=== PATIENT | female | born 1980 | race Caucasian/White ===

== ENCOUNTER 2018-12-31 22:44 | Emergency (ER) | payer SELFPAY ==
[2018-12-31] MEDS ORDERED: FLU Vacc QS2019-20(6MOS+)/PF 60 MCG/0.5 ML SYRINGE IM ONE (23:15)
[2018-12-31] MEDS ORDERED: Amoxicillin/Clavulanate K 500-125 MG Tab PO ONE (23:22)
[2018-12-31] MEDS ORDERED: Acetaminophen/oxyCODONE 325-5 MG Tab PO ONE (23:23)
[2018-12-31] MEDS ORDERED: Dexamethasone 4 MG Tab PO ONE (23:23)
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
--- NOTE | 2019-01-01 07:05 | CR ---
Right wrist: Four views of the right wrist were obtained. Comparison: No previous wrist exam. Joint spaces are preserved. No fracture, dislocation or other bony abnormality is identified. Impression: 1. No bony abnormality is identified on right wrist exam. Diagnostic code #1
== END 2018-12-31 23:47 | disposition home or self-care (01) ==
LOC: JD.ED 22:44
DX: K04.7 Periapical abscess without sinus (principal); K02.9 Dental caries, unspecified; M65.4 Radial styloid tenosynovitis [de Quervain]; J45.909 Unspecified asthma, uncomplicated; Z79.899 Other long term (current) drug therapy; Z23 Encounter for immunization
CPT/HCPCS: 73110; 90471; 90686; 99283; A9270; J8540; G0008

== ENCOUNTER 2019-02-01 12:15 | Emergency (ER) | payer SELFPAY ==
[2019-02-01] MEDS ORDERED: Sodium Chloride 0.9% 1,000 ML IV ONE (13:08)
[2019-02-01] MEDS ORDERED: Sodium Chloride 0.9% 10 ML Syringe FLUSH PRN (13:08)
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
== END 2019-02-01 16:19 | disposition home or self-care (01) ==
LOC: JD.ED 12:15
DX: D64.9 Anemia, unspecified (principal); N92.0 Excessive and frequent menstruation with regular cycle; Z87.891 Personal history of nicotine dependence
CPT/HCPCS: 36415; 80053; 81001; 84703; 85025; 96360; 99284; J7040; 99283

== ENCOUNTER 2019-12-26 07:59 | Day surgery (SDC) | payer BC ==
[~2019-12-26 07:59] MED LIST: Bupivacaine/fentaNYL/NS 100 ML Bag EPIDUR PRN; Lactated Ringers 1,000 ML IV SCH; Lidocaine 1%/Sod Bicarbonate in NS 8.4% 1 ML Syringe IDERM PRN; Sodium Chloride 0.9% 10 ML Syringe FLUSH PRN; diphenhydrAMINE 50 MG/ML SDV IVPUSH PRN; ePHEDrine 50 MG/ML SDV IVPUSH PRN; fentaNYL 100 MCG/2 ML SDV EPIDUR PRN
[2019-12-26] MEDS ORDERED: Lactated Ringers 1,000 ML ONE (08:16)
[2019-12-26] MEDS ORDERED: Dexamethasone 4 MG/ML 5 ML MDV ONE (08:16)
[2019-12-26] MEDS ORDERED: fentaNYL 250 MCG/5 ML SDV ONE (08:16)
[2019-12-26] MEDS ORDERED: Propofol 200 MG/20 ML SDV ONE (08:16)
[2019-12-26] MEDS ORDERED: Rocuronium 50 MG/5 ML Vial ONE (08:16)
[2019-12-26] MEDS ORDERED: Ondansetron 4 MG/2 ML SDV ONE (08:16)
[2019-12-26] MEDS ORDERED: Midazolam 1 MG/ML 2 ML SDV ONE (08:16)
[2019-12-26] MEDS ORDERED: Lidocaine 1% 4 ML ONE (08:34)
[2019-12-26] MEDS ORDERED: Famotidine 20 MG/2 ML SDV IVPUSH ONE (09:04)
[2019-12-26] MEDS ORDERED: Midazolam 1 MG/ML 2 ML SDV IV ONE (09:04)
[2019-12-26] MEDS ORDERED: Sodium Chloride 0.9% 10 ML Syringe FLUSH PRN (09:04)
[2019-12-26] MEDS ORDERED: Lidocaine 1%/Sod Bicarbonate in NS 8.4% 1 ML Syringe IDERM PRN (09:04)
[2019-12-26] MEDS ORDERED: Bupivacaine 0.5% 30 ML SDV ONE (09:07)
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
[2019-12-26] MEDS ORDERED: Lactated Ringers 1,000 ML IV SCH (09:15)
[2019-12-26] MEDS ORDERED: Ketorolac 30 MG/ML SDV ONE (10:42)
[2019-12-26] MEDS ORDERED: Ondansetron 4 MG/2 ML SDV IVPUSH PRN (10:51)
[2019-12-26] MEDS ORDERED: diphenhydrAMINE 50 MG/ML SDV IVPUSH PRN (10:51)
--- NOTE | 2019-12-26 10:51 | PCM.POSTAN ---
POST ANESTHESIA ASSESSMENT - MENTAL STATUS Mental Status: Alert, Oriented - VITAL SIGNS Vital Signs: Last Vital Signs Temp 36.2 C 12/26/19 08:10 Pulse 70 12/26/19 08:10 Resp 16 12/26/19 08:10 BP 133/76 12/26/19 08:10 Pulse Ox 98 12/26/19 08:10 - RESPIRATORY Respiratory Status: Respiratory Rate WNL, Airway Patent, O2 Saturation Stable - CARDIOVASCULAR CV Status: Pulse Rate WNL, Blood Pressure Stable - GASTROINTESTINAL GI Status: No Symptoms - PAIN Pain Score: 0 - POST OP HYDRATION Hydration Status: Adequate & Stable
--- NOTE | 2019-12-26 11:07 | PCM.OPNOTE ---
- General Post-Op/Procedure Note Date of Surgery/Procedure: 12/26/19 Operative Procedure(s): Diagnostic laparoscopy, hysteroscopy with dilation and curettage Findings: Posterior cul-de-sac near reflection site of lower uterus with suspected endometriosis lesion. Grossly normal-appearing uterus, bilateral fallopian tubes and ovaries. Normal-appearing appendix. Normal-appearing intestines and visualized portions of the liver. Normal-appearing ostia bilaterally and thickened endometrium noted on hysteroscopy. Pre Op Diagnosis: Abnormal uterine bleeding with suspected endometrial polyp on ultrasound and pelvic pain Post-Op Diagnosis: Same Anesthesia Technique: General ET Tube Primary Surgeon: Kenn Eddy Anesthesia Provider: Yaima De La Torre Edge Inker Uppers: Kirill Smith Reason Edge Inker Uppers Was Necessary: Laparoscopic assistance for patient safety and reduction of morbidity and mortality Role of Edge Inker Uppers: Use of laparoscopic instruments during the laparoscopic portion of the case. Pathology: Endometrial curettings Fluid Replacement, Intraop: 1,600 Output, Urine Amount: 0 (Voided prior to procedure) EBL in mLs: 30 Complications: None Condition: Good Free Text/Narrative:: Hysteroscopy fluids Fluid in: 800 mL Fluid out: 700 mL Length of procedure: 29 minutes Procedure in detail: The patient was seen in the preoperative holding area and risks, benefits, indications, and alternatives of the procedure were reviewed with the patient and she desired to proceed with a diagnostic laparoscopy, possible lysis of adhesions, possible biopsies, hysteroscopy, dilation and curettage and possible polypectomy. Consents were reviewed. The patient was taken back to the OR and given general anesthesia with an endotracheal tube which was placed without difficulty. She was placed in dorsal lithotomy position using Yellofin stirrups. She was prepped and draped in normal sterile fashion. Attention was then turned to her umbilicus and the inferior portion was injected with 0.5% Marcaine and a 5 mm stab incision was made with a scalpel and a Veress needle was then inserted through the incision. The gas was turned on, with an opening pressure of 4mmHg. Pneumoperitoneum was continued until 15 mmHg pressure. A 5 mm trocar was then inserted under direct visualization through the incision without difficulty. A global view of the abdomen was taken and noted to be overall free of adhesions. Attention was then turned to the suprapubic area and the skin was injected with local anesthetic. A skin incision was made using a scalpel. A 5 mm trocar was then inserted under direct visualization with laparoscope. A global view of the abdomen was then taken and noted to be overall normal in appearance. The intestines, visualized portions of the liver and gallbladder and upper abdomen were overall normal appearance. The uterus was then inspected and felt to be overall normal in appearance. The fallopian tubes and ovaries were normal bilaterally. Inspection of the posterior cul-de-sac showed a small area of suspected endometriosis that was measuring 1 to 2 mm in size. A biopsy was not able to be taken of this area. The anterior cul-de-sac was noted to be free of any adhesions or endometriosis lesions. The abdomen was then further explored and the appendix was visualized and was normal in appearance. The remainder of the abdomen was felt to be overall normal and the abdominal portion of the case was completed at this time. The gas was then evacuated from the peritoneum and troc ars removed. These were closed using 4-0 Monocryl suture and Dermabond. Attention was then turned to the pelvis for the hysteroscopic portion of the procedure. A weighted speculum was placed in the vagina and the cervix was visualized. The anterior lip of the cervix was grasped with an Allis clamp. The cervix was serially dilated to a 15 Yi Valadez dilator. A 5 mm hysteroscope was inserted into the uterine cavity and advanced to the uterine fundus. The ostia were noted to be present bilaterally. The uterine cavity was difficult to visualize secondary to the amount of blood clot that was present. The hysteroscope was removed and a sharp curette was used to circumferentially curette the entirety of the uterine cavity where good cri was present in all directions. The curettings were sent for pathology. The hysteroscope was then reinserted into the uterine cavity and there was noted to be no polyp or thickened lining of the uterus present. The procedure was complete at this time and the Allis clamp was removed from the cervix and good hemostasis was noted. All instruments were removed from the vagina. All needle and sponge counts were correct x 2. The patient was awoken from general anesthesia and taken to the PACU for recovery in stable condition. She will be discharged to home once she is able to meet all postoperative milestones including tolerating small amount of oral intake and liquids, ambulate without difficulty, her pain controlled with oral medications and able to void without difficulty. She will follow-up in the clinic in 1week or earlier as needed. Sponge, lap, needle, and instrument counts were correct x 2. Kenn Eddy MD 11:05 AM 12/26/2019 Review of images from the case IMG 001: Left fallopian tube and ovary with grossly normal appearance. Small portion of the uterine fundus was normal in appearance. IMG 002: Right fallopian tube and ovary with grossly normal appearance. Small portion of the uterine fundus was normal in appearance. IMG 003: Anterior cul-de-sac and uterine fundus with normal appearance. IMG 004: Appendix with grossly normal appearance. IMG 005: Upper abdomen with right lobe of the liver grossly normal in appearance . IMG 006: Upper abdomen on the left side with left lobe of the liver grossly normal in appearance IMG 007: Posterior cul-de-sac near the peritoneal reflection point with suspected endometriosis lesion. IMG 008: Left fallopian tube ostia location difficult to visualize ostia IMG 009: Right tubal ostia location IMG 010: Uterine fundus after curettage IMG 011: Uterine fundus and left portion of the uterus grossly normal in appearance after curettage IMG 012: Uterine fundus in the right portion of the uterine cavity grossly normal in appearance after curettage IMG 013: Global view of the uterine cavity after curettage
[2019-12-26] MEDS: fentaNYL 100 MCG/2 ML SDV IVPUSH PRN ×2 (11:08→11:26)
[2019-12-26] MEDS ORDERED: Acetaminophen/HYDROcodone 325-5 MG Tab PO PRN (12:10)
--- NOTE | 2019-12-29 07:31 | PCM48HPAN ---
Post Anesthesia Note - EVALUATION WITHIN 48HRS OF ANESTHETIC Vital Signs in Normal Range: Yes Patient Participated in Evaluation: Yes Respiratory Function Stable: Yes Airway Patent: Yes Cardiovascular Function Stable: Yes Hydration Status Stable: Yes Pain Control Satisfactory: Yes Nausea and Vomiting Control Satisfactory: Yes Mental Status Recovered: Yes Vital Signs: Last Vital Signs Temp 36.7 C 12/26/19 12:45 Pulse 56 L 12/26/19 12:45 Resp 16 12/26/19 12:45 BP 128/88 12/26/19 12:45 Pulse Ox 96 12/26/19 12:45
== END 2019-12-26 13:05 | disposition home or self-care (01) ==
LOC: JD.SDS 07:59
PROVIDERS: ATTEND Obstetrics & Gynecology
DX: N84.0 Polyp of corpus uteri (principal); J45.909 Unspecified asthma, uncomplicated; F41.9 Anxiety disorder, unspecified; F32.9 Major depressive disorder, single episode, unspecified; Z87.891 Personal history of nicotine dependence
CPT/HCPCS: 49320; 58558; 81001; 81025; A9270; J1100; J1885; J2001; J2250; J2405; J2704; J2710; J3010; J3490; J7120; 00840

== ENCOUNTER 2020-05-22 01:18 | Emergency (ER) | payer BC ==
[2020-05-22] MEDS ORDERED: Ondansetron 4 MG/2 ML SDV IVPUSH ONE (02:09)
[2020-05-22] MEDS ORDERED: HYDROmorphone 1 MG/ML Syringe IVPUSH STA (02:09)
[2020-05-22] MEDS ORDERED: FLU VACC QS2020-21(6MOS UP)/PF 60 MCG/0.5 ML SYRINGE IM ONE (02:15)
[2020-05-22] MEDS ORDERED: Sodium Chloride 0.9% 1,000 ML IV SCH (02:15)
--- NOTE | 2020-05-22 02:18 | EDM.PDOC ---
ED HPI GENERAL MEDICAL PROBLEM - General Chief Complaint: Abdominal Pain Stated Complaint: RIGHT SIDE PAIN/VOMITING Time Seen by Provider: 05/22/20 01:32 Source of Information: Reports: Patient, Significant Other (Boyfriend) History Limitations: Reports: No Limitations - History of Present Illness INITIAL COMMENTS - FREE TEXT/NARRATIVE: Ms. Perla is a very pleasant 40-year-old woman who now presents to the ED stating that she has had right upper quadrant abdominal pain waxing and waning for the past 6 days, followed by nausea since evening, 05/20/2020, and 1 episode of emesis last night, 05/21/2020. She describes her abdominal pain as a dull ache, but it becomes sharp and stabbing on occasion, especially with certain movements, such as bending over. She has not identified any other modifiers, such as food, although she states that she has not been eating very much. No associated fever, constipation, diarrhea, or urinary symptoms such as dysuria, urinary frequency, or gross hematuria. The patient states that she has a history of kidney stones, but that this does not really feel like a kidney stone. She also has a history of laparoscopy-con firmed endometriosis, which has previously been confined to the right lower quadrant. The patient states that she took 1 dose of her fianc's Prilosec on Sunday, Sunday, and , without improvement in her symptoms. She has also been taking [id number] ibuprofen and Excedrin, which she states "takes the edge off". The patient last ate around 19:30. Here in the ED, the patient's initial BP is found to be elevated at 180/104, otherwise, she is hemodynamically stable, afebrile, saturating 100% on room air. She appears to be quite anxious, but is in no acute distress. Prior to 6 days ago, the patient denies having a recent fever, chills, sore throat, ear pain, nasal or sinus congestion, cough, dyspnea, chest pain, palpitations, nausea, vomiting, constipation, diarrhea, abdominal pain, urinary symptoms, recent weight gain or weight loss, recent bloody bowel movements or black bowel movements, recent joint aches, headaches, or rashes. The patient does not have a PCP. Her Senior Software Tester is Dr. Kenn Eddy. She has not received an influenza vaccine this season, but agreed to get one here in the ED. Right Abdomen Pain Score (Numeric/FACES): 7 - Related Data Allergies Allergy/AdvReac Type Severity Reaction Status Date / Time No Known Allergies Allergy Verified 02/18/19 22:44 Home Meds: Home Meds Ferrous Sulfate [Iron] 325 mg PO DAILY 12/31/18 [History] Docusate Sodium [Colace] 100 mg PO BID #60 capsule 12/26/19 [Rx] Hydrocodone/Acetaminophen [Hydrocodone-Acetamin 5-325 mg] 1 - 2 each PO Q6HR PRN #12 tablet 12/26/19 [Rx] Ibuprofen 600 mg PO Q6H PRN #0 12/26/19 [Rx] Ondansetron [Zofran ODT] 1 tab PO Q8H PRN #10 tab.dis 05/22/20 [Rx] Past Medical History Cardiovascular 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: Other (See Below) (Patient has had to wear a Holter monitor in the past for "passing out for no known reason," but states she never had to see a minute clerk and that nobody ever did anything else to her) Respiratory 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: Asthma (suspected as a child) Gastrointestinal 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: Gastritis (per EGD), PUD (bleeding, per EGD) Genitourinary 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: Renal Calculus 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: Endometriosis (laparoscopy-confirmed), Spontaneous (x 2), Other (See Below) () Musculoskeletal 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: Back Pain, Chronic (due to DDD), Neck Pain, Chronic (due to DDD) Psychiatric 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: Anxiety (untreated), Depression (untreated) Endocrine/Metabolic 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: Obesity/BMI 30+ Hematologic 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: Blood Transfusion(s), Iron Deficiency - Past Surgical History HEENT Surgical 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: Oral Surgery (dental extractions) GI Surgical 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: Colonoscopy (x 1), EGD (x 1) Female Surgical 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: D&C (x 1), Other (See Below) (Exploratory laparoscopy with endometrial biopsy x 1) Social & Family History - Tobacco Use Tobacco Use Status *Q: Former Tobacco User Years of Tobacco use: 28 Packs/Tins Daily: 1 Month/Year Tobacco Last Used: Quit 2017 Tobacco Use Comment: Started at 9 yrs old - Caffeine Use Caffeine Use: Reports: None - Alcohol Use Alcohol Use History: No - Recreational Drug Use Recreational Drug Use: Yes Drug Use in Last 12 Months: Yes Recreational Drug Type: Reports: Marijuana/Hashish (smokes daily) - Living Situation & Occupation Living situation: Reports: , with Significant Other (Fianc), with Family (2 kids) Occupation: Employed ([employer]) ED ROS GENERAL - Review of Systems Review Of Systems: Comprehensive ROS is negative, except as noted in HPI. ED EXAM, GI/ABD - Physical Exam Exam: See Below Exam Limited By: No Limitations General Appearance: Alert, WD/WN, No Apparent Distress Eyes: Bilateral: Normal Appearance, EOMI Ears: Normal External Exam, Hearing Grossly Normal Nose: Normal Inspection Throat/Mouth: Normal Inspection, Normal Lips, Normal Voice, No Airway Compromise Head: Atraumatic, Normocephalic Neck: Normal Inspection, Full Range of Motion Respiratory/Chest: No Respiratory Distress, Lungs Clear, Normal Breath Sounds, No Accessory Muscle Use Cardiovascular: Normal Peripheral Pulses, Regular Rate, Rhythm, No Edema, No Gallop, No JVD, No Murmur, No Rub GI/Abdominal Exam: Normal Bowel Sounds, Soft, No Organomegaly, No Distention, No Abnormal Bruit, No Mass, Tender (Palpation of the left abdomen induces pain on the right. She has a considerable tenderness to the right upper quadrant, including a true Lieberman sign.) Back Exam: Normal Inspection, Full Range of Motion, CVA Tenderness (R). No: CVA Tenderness (L) Extremities: Normal Inspection, Normal Range of Motion, No Pedal Edema, Normal Capillary Refill Neurological: Alert, Oriented, Normal Cognition, No Motor/Sensory Deficits Psychiatric: Anxious Skin Exam: Warm, Dry, Intact, Normal Color, No Rash Course - Vital Signs Last Recorded V/S: Last Vital Signs Temp 36.4 C 05/22/20 01:32 Pulse 69 05/22/20 01:32 Resp 20 05/22/20 01:32 BP 180/104 H 05/22/20 01:32 Pulse Ox 100 05/22/20 01:32 - Orders/Labs/Meds Orders: Active Orders 24 hr Category Date Time Status Influenza Vaccine Charge [RC] .DISCHARGE Care 05/22/20 02:00 Active Abdomen Ltd [US] Stat Exams 05/22/20 02:08 Taken Abdomen Pelvis w Cont [CT] Stat Exams 05/22/20 02:09 Taken Sodium Chloride 0.9% [Normal Saline] 1,000 ml Med 05/22/20 02:15 Active IV ASDIRECTED Medication Orders Sodium Chloride (Normal Saline) 1,000 mls @ 150 mls/hr IV ASDIRECTED CHELSI Last Admin: 05/22/20 03:10 Dose: 150 mls/hr Documented by: [id number] Labs: Laboratory Tests 05/22/20 05/22/20 05/22/20 Range/Units 02:09 02:41 02:56 WBC (3.98-10.04) K/mm3 RBC (3.98-5.22) M/mm3 Hgb (11.2-15.7) gm/dl Hct (34.1-44.9) % MCV (79.4-94.8) fl MCH (25.6-32.2) pg MCHC (32.2-35.5) g/dl RDW Std Deviation (36.4-46.3) fL Plt Count (182-369) K/mm3 MPV (9.4-12.3) fl Neutrophils % (Manual) (40-60) % Band Neutrophils % (0-10) % Lymphocytes % (Manual) (20-40) % Atypical Lymphs % % Monocytes % (Manual) (2-10) % Eosinophils % (Manual) (0.7-5.8) % Basophils % (Manual) (0.1-1.2) Platelet Estimate RBC Morph Comment Sodium (136-145) mEq/L Potassium (3.5-5.1) mEq/L Chloride (98-107) mEq/L Carbon Dioxide (21-32) mEq/L Anion Gap (5-15) BUN (7-18) mg/dL Creatinine (0.55-1.02) mg/dL Est Cr Clr Drug Dosing mL/min Estimated GFR (MDRD) (>60) mL/min BUN/Creatinine Ratio (14-18) Glucose (74-106) mg/dL Calcium (8.5-10.1) mg/dL Magnesium (1.8-2.4) mg/dl Total Bilirubin (0.2-1.0) mg/dL AST (15-37) U/L ALT (14-59) U/L Alkaline Phosphatase (46-116) U/L Total Protein (6.4-8.2) g/dl Albumin (3.4-5.0) g/dl Globulin gm/dL Albumin/Globulin Ratio (1-2) Lipase (73-393) U/L Urine Color Light yellow (Yellow) Urine Appearance Clear (Clear) Urine pH 6.5 (5.0-8.0) Ur Specific Elbert 1.020 (1.005-1.030) Urine Protein Negative (Negative) Urine Glucose (UA) Negative (Negative) Urine Ketones Negative (Negative) Urine Occult Blood Negative (Negative) Urine Nitrite Negative (Negative) Urine Bilirubin Negative (Negative) Urine Urobilinogen 0.2 (0.2-1.0) Ur Leukocyte Esterase Negative (Negative) Urine RBC Not seen (0-5) /hpf Urine WBC Not seen (0-5) /hpf Ur Squamous Epith Cells Not seen (0-5) /hpf Urine Bacteria Rare (FEW) /hpf Urine Mucus Rare (FEW) /hpf Urine HCG, Qual Negative (NEGATIVE) SARS-CoV-2 RNA (DAWN) Negative (NEGATIVE) 05/22/20 05/22/20 Range/Units 03:15 03:15 WBC 6.66 (3.98-10.04) K/mm3 RBC 4.05 (3.98-5.22) M/mm3 Hgb 12.5 (11.2-15.7) gm/dl Hct 37.5 (34.1-44.9) % MCV 92.6 D (79.4-94.8) fl MCH 30.9 (25.6-32.2) pg MCHC 33.3 (32.2-35.5) g/dl RDW Std Deviation 41.1 (36.4-46.3) fL Plt Count 313 (182-369) K/mm3 MPV 9.7 (9.4-12.3) fl Neutrophils % (Manual) 51 (40-60) % Band Neutrophils % 0 (0-10) % Lymphocytes % (Manual) 38 (20-40) % Atypical Lymphs % 0 % Monocytes % (Manual) 7 (2-10) % Eosinophils % (Manual) 4 (0.7-5.8) % Basophils % (Manual) 0 L (0.1-1.2) Platelet Estimate Adequate RBC Morph Comment Normal Sodium 142 (136-145) mEq/L Potassium 3.5 (3.5-5.1) mEq/L Chloride 105 (98-107) mEq/L Carbon Dioxide 24 (21-32) mEq/L Anion Gap 16.5 H (5-15) BUN 9 (7-18) mg/dL Creatinine 0.8 (0.55-1.02) mg/dL Est Cr Clr Drug Dosing 65.80 mL/min Estimated GFR (MDRD) > 60 (>60) mL/min BUN/Creatinine Ratio 11.3 L (14-18) Glucose 91 (74-106) mg/dL Calcium 9.2 (8.5-10.1) mg/dL Magnesium 2.0 (1.8-2.4) mg/dl Total Bilirubin 0.2 (0.2-1.0) mg/dL AST 19 (15-37) U/L ALT 24 (14-59) U/L Alkaline Phosphatase 64 (46-116) U/L Total Protein 7.5 (6.4-8.2) g/dl Albumin 3.7 (3.4-5.0) g/dl Globulin 3.8 gm/dL Albumin/Globulin Ratio 1.0 (1-2) Lipase 114 (73-393) U/L Urine Color (Yellow) Urine Appearance (Clear) Urine pH (5.0-8.0) Ur Specific Elbert (1.005-1.030) Urine Protein (Negative) Urine Glucose (UA) (Negative) Urine Ketones (Negative) Urine Occult Blood (Negative) Urine Nitrite (Negative) Urine Bilirubin (Negative) Urine Urobilinogen (0.2-1.0) Ur Leukocyte Esterase (Negative) Urine RBC (0-5) /hpf Urine WBC (0-5) /hpf Ur Squamous Epith Cells (0-5) /hpf Urine Bacteria (FEW) /hpf Urine Mucus (FEW) /hpf Urine HCG, Qual (NEGATIVE) SARS-CoV-2 RNA (DAWN) (NEGATIVE) Meds: Medications Generic Name Dose Route Start Last Admin Trade Name Freq PRN Reason Stop Dose Admin Sodium Chloride 1,000 mls @ 150 mls/hr 05/22/20 02:15 05/22/20 03:10 Normal Saline IV 150 mls/hr ASDIRECTED CHELSI Administration Discontinued Medications Generic Name Dose Route Start Last Admin Trade Name Freq PRN Reason Stop Dose Admin Hydromorphone HCl 0.5 mg 05/22/20 02:09 05/22/20 03:09 Dilaudid IVPUSH 05/22/20 02:10 0.5 mg ONETIME STA Administration Influenza Virus Vaccine 1 each 05/22/20 02:00 Pharmacy To Dose - Influenza Vaccine IM 05/22/20 02:01 ONETIME ONE Influenza Virus Vaccine 60 mcg 05/22/20 02:15 05/22/20 02:58 Fluzone Quad Syringe IM 05/22/20 02:16 60 mcg .ONCE ONE Administration Ondansetron HCl 4 mg 05/22/20 02:09 05/22/20 03:00 Zofran IVPUSH 05/22/20 02:10 4 mg ONETIME ONE Administration - Re-Assessments/Exams Free Text/Narrative Re-Assessment/Exam: 05/22/20 02:11 As above, the patient has had 6 days of right upper quadrant pain radiating through to her right back, made worse with movements, but not really with food, then developed nausea night and vomited last night. On examination, she has considerable tenderness to her right upper quadrant, along with a true Lieberman's sign, but she also has some right CVA tenderness. I believe that her history and physical examination are most consistent with acute cholecystitis, although a ureterolith or other cause, such as endometriosis, are possible, as well. I have ordered an ultrasound of the right upper quadrant, after which she can be doing drinking oral contrast for a CT of the abdomen with oral and IV contrast. I have additionally ordered numerous blood tests, a urinalysis, a urine test, and, if she is to be admitted, a swab for the SARS-CoV-2 virus. In the meantime, the patient will be given IV Dilaudid, IV Zofran, and IV fluid. 05/22/20 03:46 Ultrasound of the right upper quadrant is read by [facility] as "No acute findings." 05/22/20 04:24 The patient's CBC, CMP, magnesium level, lipase level, urinalysis, urine test, and swab for the SARS-CoV-2 virus are all completely normal/n egative. 05/22/20 05:45 CT of the abdomen and pelvis with oral and IV contrast is read by [facility] as "No acute findings in the abdomen or pelvis." 05/22/20 05:48 Test results discussed with the patient. As above, the patient's entire work-up was completely unremarkable. That could be because the patient has cholecystitis, which oftentimes has an unremarkable work-up, or it could also be that the patient is simply feeling anxious, as she had initially feared. I will refer the patient to Dr. Raymundo for further evaluation, that will likely include a HIDA scan. The patient will be given an influenza vaccine prior to discharge. Departure - Departure Time of Disposition: 05:49 Disposition: Home, Self-Care 01 Condition: Good Clinical Impression: Right upper quadrant abdominal pain of unknown etiology, Nausea & vomiting - Discharge Information *PRESCRIPTION DRUG MONITORING PROGRAM REVIEWED*: Not Applicable *COPY OF PRESCRIPTION DRUG MONITORING REPORT IN PATIENT LAZARO: Not Applicable Referrals: Jazmín Raymundo MD [Physician] - Kenn Eddy MD [Physician] - Forms: ED Department Discharge Additional Instructions: You were seen in the emergency room for 6 days of upper right abdominal pain radiating to the your right back, along with nausea and vomiting. Work-up in the ER included numerous blood tests, a urinalysis, a urine test, a swab for the SARS-CoV-2 virus, an ultrasound of your gallbladder, and a CT of your abdomen and pelvis. Your entire work-up was unremarkable, and does not explain the cause of your symptoms. A prescription for the anti-nausea medicine Zofran has been sent to the [facility] located in the [facility] grocery store. You may dissolve 1 tablet of Zofran on your tongue up to every 8 hours, as needed for nausea/vomiting. We recommend that you stay adequately hydrated and eat a bland, low-fat diet. We recommend that you follow-up with the Surgeon Dr. Jazmín Raymundo. Call his office Sunday morning to make an appointment. If any other problems, please do not hesitate to return to the ER. You were given an influenza vaccine during your ER visit. Sepsis Event Note (ED) - Evaluation Sepsis Screening Result: No Definite Risk - Focused Exam Vital Signs: Vital Signs Temp Pulse Resp BP Pulse Ox 05/22/20 01:32 36.4 C 69 20 180/104 H 100 - My Orders Last 24 Hours: My Active Orders 05/22/20 02:00 Influenza Vaccine Charge [RC] .DISCHARGE 05/22/20 02:08 Abdomen Ltd [US] Stat 05/22/20 02:09 Abdomen Pelvis w Cont [CT] Stat 05/22/20 02:15 Sodium Chloride 0.9% [Normal Saline] 1,000 ml IV ASDIRECTED - Assessment/Plan Last 24 Hours: My Active Orders 05/22/20 02:00 Influenza Vaccine Charge [RC] .DISCHARGE 05/22/20 02:08 Abdomen Ltd [US] Stat 05/22/20 02:09 Abdomen Pelvis w Cont [CT] Stat 05/22/20 02:15 Sodium Chloride 0.9% [Normal Saline] 1,000 ml IV ASDIRECTED
--- NOTE | 2020-05-22 08:08 | US ---
Limited abdominal ultrasound: Multiple real-time images were obtained of the upper right abdomen. Gallbladder contains no shadowing gallstones. No gallbladder wall thickening or biliary duct dilatation is seen. Liver shows no focal abnormality. Pancreas is obscured mostly by bowel gas. Right kidney shows no hydronephrosis or mass. Right kidney has a length of 10.3 cm. Main portal vein shows normal hepatopedal flow. Impression: 1. Mostly obscured pancreas due to bowel gas. 2. Other portions of the right upper quadrant abdominal ultrasound appear within normal limits. Diagnostic code #2 I agree with preliminary report from [facility], finalized on 05/22/20, 4:17 AM CONVENTIONS ASSISTANT
--- NOTE | 2020-05-22 08:11 | CT ---
CT abdomen and pelvis Technique: Multiple axial sections were obtained from above the dome of the diaphragm inferiorly through the pubic symphysis. Intravenous and oral contrast was given. Delayed images were also obtained through the pelvis. Comparison: No prior CT abdomen or pelvis exam is available. Previous limited abdominal study performed earlier on the same day (2:38 AM). Findings: Visualized lung bases show nothing acute. Liver contains no focal parenchymal abnormality. Spleen appears within normal limits. Adrenal glands show no nodule. Pancreas shows no discrete abnormality. Gallbladder contains no calcified gallstones. No edema is seen around the gallbladder. Kidneys show symmetric contrast enhancement. No hydronephrosis or mass is seen. Abdominal aorta shows no aneurysm. No retroperitoneal adenopathy or mesenteric abnormalities are seen. Appendix is seen which is normal in size. No pelvic mass or adenopathy is identified. Delayed images show contrast within the distal ureters and within the bladder. Bone window settings were reviewed which show degenerative changes mostly within the thoracic spine. No acute osseous abnormality is appreciated. Impression: 1. Nonacute findings as noted above. 2. No etiology is identified for abdominal pain. Diagnostic code #2 I agree with preliminary report from [facility], finalized on 05/22/20, 6:29 AM TEST DRILLER
== END 2020-05-22 06:10 | disposition home or self-care (01) ==
LOC: JD.ED 01:18
DX: R10.11 Right upper quadrant pain (principal); R11.2 Nausea with vomiting, unspecified; J45.909 Unspecified asthma, uncomplicated; E66.9 Obesity, unspecified; Z68.32 Body mass index [BMI] 32.0-32.9, adult; Z20.822 Contact with and (suspected) exposure to COVID-19; Z87.891 Personal history of nicotine dependence; Z23 Encounter for immunization
CPT/HCPCS: 36415; 74177; 76705; 80053; 81001; 81025; 83690; 83735; 85007; 85027; 87635; 90471; 90686; 96374; 96375; 99284; J1170; J2405; J7030; G0008; U0002

== ENCOUNTER 2020-08-19 16:57 | Emergency (ER) | payer BC | END 2020-08-19 17:20 | disposition left against medical advice (07) | LOC: JD.ED 16:57 | DX: R10.11 Right upper quadrant pain (principal); Z53.21 Procedure and treatment not carried out due to patient leaving prior to being seen by health care provider ==

== ENCOUNTER 2020-08-19 20:16 | Emergency (ER) | payer BC ==
[2020-08-19] MEDS ORDERED: HYDROmorphone 1 MG/ML Syringe IM ONE ×2 (20:58→22:53)
[2020-08-19] MEDS ORDERED: Ondansetron 4 MG Tab.DIS PO ONE (20:58)
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
[2020-08-19] MEDS ORDERED: Pantoprazole 40 MG Vial IVPUSH ONE (22:51)
[2020-08-19] MEDS ORDERED: HYDROmorphone 0.5 MG/0.5 ML Syringe IVPUSH ONE (22:51)
[2020-08-19] MEDS ORDERED: Alum Hydrox/Mag Hydrox/Simeth 30 ML, Lidocaine 2% 15 ML PO ONE ×2 (22:53)
--- NOTE | 2020-08-20 08:29 | US ---
Limited abdominal ultrasound: Multiple real-time images of the upper right abdomen were obtained. Comparison: Prior CT abdomen and pelvis study of 05/22/20 as well as right upper quadrant abdominal ultrasound of 05/22/20. Technologist's note: Suboptimal exam due to bowel gas. Liver shows no focal parenchymal abnormality. Gallbladder contains no shadowing gallstones. No gallbladder wall thickening or biliary duct dilatation is seen. Right kidney shows no hydronephrosis or mass. Right kidney has a length of 11.0 cm. Proximal aorta is not visualized due to bowel gas. Pancreas is also obscured by bowel gas. Inferior vena cava is patent. Main portal vein shows normal hepatopedal flow. Impression: 1. Pancreas and proximal aorta are obscured by bowel gas. 2. Other portions of the right upper quadrant abdominal ultrasound appear within normal limits. Diagnostic code #2 I agree with preliminary report from [facility], finalized on 08/19/20, 11:29 PM CDT, code 1
== END 2020-08-19 23:13 | disposition home or self-care (01) ==
LOC: JD.ED 20:16
DX: R10.11 Right upper quadrant pain (principal); E66.9 Obesity, unspecified; Z87.891 Personal history of nicotine dependence; Z68.31 Body mass index [BMI] 31.0-31.9, adult
CPT/HCPCS: 76705; 96372; 99284; A9270; J1170; 99283

== ENCOUNTER 2022-12-07 17:06 | Inpatient (IN) | payer MEDICAID ==
[2022-12-07] MEDS ORDERED: Haloperidol Lactate 5 MG/ML SDV IM ONE (19:08)
[2022-12-07] MEDS ORDERED: Ondansetron 4 MG Tab.DIS PO ONE (19:08)
[2022-12-07] MEDS ORDERED: Dextrose 5%-0.9% NaCl 1,000 ML IV SCH (23:00)
[2022-12-07] MEDS ORDERED: LORazepam 1 MG Tab PO ONE (23:27)
[2022-12-08] MEDS ORDERED: hydrALAZINE 20 MG/ML SDV IVPUSH ONE (00:40)
[2022-12-08 06:42] LABS: BASOPHILS ABSOLUTE AUTO 0.1 K/mm3 (0.0-0.2); EOSINOPHILS ABSOLUTE AUTO 0.3 K/mm3 (0.0-0.4); EOSINOPHILS PERCENT AUTO 3.8 % (0.0-6.0); HEMOGLOBIN 15.3 gm/dl (12.0-16.0); IMMATURE GRAN ABSOLUTE AUTO 0.03 K/mm3 (0.00-0.05); IMMATURE GRAN PERCENT AUTO 0.4 % (0.0-0.4); LYMPHOCYTES ABSOLUTE AUTO 2.3 K/mm3 (1.0-4.8); LYMPHOCYTES PERCENT AUTO 28.4 % (24.0-44.0); MEAN CORPUSCULAR HEMOGLOBIN 32.3 pg (28.0-32.0); MEAN CORPUSCULAR HGB CONC 35.6 g/dl (32.0-36.0); MEAN CORPUSCULAR VOLUME 90.7 fl (83.0-99.0); MEAN PLATELET VOLUME 9.8 fl (9.4-12.3); MONOCYTES ABSOLUTE AUTO 0.6 K/mm3 (0.0-0.8); MONOCYTES PERCENT AUTO 7.5 % (0.0-8.0); NEUTROPHILS ABSOLUTE AUTO 4.9 K/mm3 (1.8-7.7); NEUTROPHILS PERCENT AUTO 58.9 % (41.0-71.0); PLATELET COUNT,PLT 324 K/mm3 (150-400); RED BLOOD CELL COUNT 4.74 M/mm3 (4.10-5.30); WHITE BLOOD CELL COUNT,WBC 8.25 K/mm3 (3.9-11.3)
[2022-12-08 07:09] LABS: ANION GAP 18.5 (5-15); BUN/CREATININE RATIO 11.3 (14-18); CREATININE 0.8 mg/dL (0.55-1.02); EST CRCL DRUG DOSING (CG) 64.46 mL/min; MAGNESIUM 1.9 mg/dL (1.8-2.4); POTASSIUM,K 3.5 mEq/L (3.5-5.1)
[2022-12-08] MEDS ORDERED: Labetalol 100 MG/20 ML MDV IVPUSH PRN (07:13)
[2022-12-08] MEDS ORDERED: Gadobenate Dimeglumine 529 MG/ML 20 ML SDV IVPUSH ONE (07:36)
[2022-12-08 08:20] LABS: A/G RATIO 0.9 (1-2); ALBUMIN 3.8 g/dl (3.4-5.0); BILIRUBIN TOTAL 0.2 mg/dL (0.2-1.0); PROTEIN TOTAL,TP 7.9 g/dl (6.4-8.2)
[2022-12-08] MEDS: Cholecalciferol (Vitamin D3) 5,000 UNIT Cap PO SCH (08:41)
[2022-12-08] MEDS: Acetaminophen 325 MG Tab PO SCH ×2 (08:41→21:12)
[2022-12-08] MEDS ORDERED: Labetalol 100 MG/20 ML MDV IVPUSH ONE (11:49)
[2022-12-08] MEDS ORDERED: atorvaSTATin 40 MG Tab PO ONE (11:51)
[2022-12-08] MEDS ORDERED: LORazepam 2 MG/ML SDV IVPUSH ONE (15:00)
[2022-12-08] MEDS ORDERED: Scopolamine 1.5 MG Transdermal Patch TRDERM PRN (16:18)
[2022-12-08] MEDS: Sodium Chloride 0.9% 10 ML Syringe FLUSH ONE ×2 (16:28→16:35)
[2022-12-08] MEDS: Ondansetron 4 MG/2 ML SDV IVPUSH PRN (16:32)
[2022-12-08] MEDS: Labetalol 100 MG in Sodium Chloride 0.9% 80 ML IV SCH ×2 (16:36→18:49)
[2022-12-08] MEDS: Acetaminophen/HYDROcodone 325-5 MG Tab PO PRN (17:10)
[2022-12-08] MEDS: Morphine 2 MG/ML SYRINGE IVPUSH PRN (17:52)
[2022-12-08] MEDS: atorvaSTATin 40 MG Tab PO SCH (21:12)
[2022-12-09] MEDS: Morphine 2 MG/ML SYRINGE IVPUSH PRN ×2 (00:37→07:45)
[2022-12-09] MEDS: Ondansetron 4 MG/2 ML SDV IVPUSH PRN (07:57)
[2022-12-09] MEDS: Acetaminophen/HYDROcodone 325-5 MG Tab PO PRN (08:02)
[2022-12-09] MEDS: Acetaminophen 325 MG Tab PO SCH ×3 (09:16→21:05)
[2022-12-09] MEDS: Cholecalciferol (Vitamin D3) 5,000 UNIT Cap PO SCH (09:17)
[2022-12-09] MEDS: Labetalol 100 MG in Sodium Chloride 0.9% 80 ML IV SCH (11:02)
[2022-12-09] MEDS: Labetalol 100 MG Tab PO SCH ×2 (11:10→21:04)
[2022-12-09] MEDS ORDERED: Haloperidol Lactate 5 MG/ML SDV IM ONE (12:49)
[2022-12-09] MEDS ORDERED: HYDROmorphone 1 MG/ML Syringe IVPUSH ONE (12:50)
[2022-12-09] MEDS: LORazepam 1 MG Tab PO PRN (19:09)
[2022-12-09] MEDS: Aspirin 81 MG Tab.EC PO SCH (21:04)
[2022-12-09] MEDS: atorvaSTATin 40 MG Tab PO SCH (21:05)
[2022-12-10] MEDS: Acetaminophen/HYDROcodone 325-5 MG Tab PO PRN (07:40)
[2022-12-10] MEDS: Acetaminophen 325 MG Tab PO SCH ×2 (08:25→14:21)
[2022-12-10] MEDS: Labetalol 100 MG Tab PO SCH ×2 (08:26→21:01)
[2022-12-10] MEDS: Cholecalciferol (Vitamin D3) 5,000 UNIT Cap PO SCH (08:27)
[2022-12-10] MEDS: Ondansetron 4 MG/2 ML SDV IVPUSH PRN ×2 (08:27→14:37)
[2022-12-10] MEDS: LORazepam 1 MG Tab PO PRN ×2 (08:30→21:01)
[2022-12-10] MEDS: amLODIPine 10 MG Tab PO SCH (10:20)
[2022-12-10] MEDS ORDERED: HYDROmorphone 0.5 MG/0.5 ML Syringe IVPUSH ONE (14:14)
[2022-12-10] MEDS ORDERED: HYDROmorphone 0.5 MG/0.5 ML Syringe ONE (14:20)
[2022-12-10] MEDS: Labetalol 100 MG in Sodium Chloride 0.9% 80 ML IV SCH (15:42)
[2022-12-10] MEDS ORDERED: Naloxone 0.4 MG/ML SDV IVPUSH PRN (16:04)
[2022-12-10] MEDS: oxyCODONE 5 MG Tab PO PRN (16:25)
[2022-12-10] MEDS: HYDROmorphone 0.5 MG/0.5 ML Syringe IVPUSH PRN (17:29)
[2022-12-10] MEDS: atorvaSTATin 40 MG Tab PO SCH (21:01)
[2022-12-10] MEDS: Aspirin 81 MG Tab.EC PO SCH (21:01)
[2022-12-11] MEDS: HYDROmorphone 0.5 MG/0.5 ML Syringe IVPUSH PRN ×4 (03:06→18:42)
[2022-12-11 05:26] LABS: A/G RATIO 0.9 (1-2); ALBUMIN 3.4 g/dl (3.4-5.0); ANION GAP 13.2 (5-15); BILIRUBIN TOTAL 0.4 mg/dL (0.2-1.0); CREATININE 0.8 mg/dL (0.55-1.02); EST CRCL DRUG DOSING (CG) 64.46 mL/min; POTASSIUM,K 4.2 mEq/L (3.5-5.1); PROTEIN TOTAL,TP 7.1 g/dl (6.4-8.2)
[2022-12-11 05:46] LABS: BASOPHILS ABSOLUTE AUTO 0.1 K/mm3 (0.0-0.2); BASOPHILS PERCENT AUTO 1.3 % (0.0-1.0); EOSINOPHILS ABSOLUTE AUTO 0.5 K/mm3 (0.0-0.4); EOSINOPHILS PERCENT AUTO 5.9 % (0.0-6.0); HEMATOCRIT 42.9 % (37.0-47.0); HEMOGLOBIN 14.6 gm/dl (12.0-16.0); IMMATURE GRAN ABSOLUTE AUTO 0.03 K/mm3 (0.00-0.05); IMMATURE GRAN PERCENT AUTO 0.4 % (0.0-0.4); LYMPHOCYTES ABSOLUTE AUTO 2.5 K/mm3 (1.0-4.8); LYMPHOCYTES PERCENT AUTO 32.2 % (24.0-44.0); MEAN PLATELET VOLUME 9.6 fl (9.4-12.3); MONOCYTES ABSOLUTE AUTO 0.8 K/mm3 (0.0-0.8); MONOCYTES PERCENT AUTO 9.9 % (0.0-8.0); NEUTROPHILS ABSOLUTE AUTO 3.9 K/mm3 (1.8-7.7); NEUTROPHILS PERCENT AUTO 50.3 % (41.0-71.0); PLATELET COUNT,PLT 296 K/mm3 (150-400); RED BLOOD CELL COUNT 4.43 M/mm3 (4.10-5.30); WHITE BLOOD CELL COUNT,WBC 7.65 K/mm3 (3.9-11.3)
[2022-12-11 05:47] LABS: MEAN CORPUSCULAR VOLUME 96.8 fl (83.0-99.0)
[2022-12-11] MEDS: Cholecalciferol (Vitamin D3) 5,000 UNIT Cap PO SCH (08:52)
[2022-12-11] MEDS: amLODIPine 10 MG Tab PO SCH (08:54)
[2022-12-11] MEDS: Labetalol 100 MG Tab PO SCH ×2 (09:03→20:43)
[2022-12-11] MEDS ORDERED: Acetaminophen/Butalbital/Caffeine 325-50-40 MG Tab PO ONE (10:00)
[2022-12-11] MEDS: oxyCODONE 5 MG Tab PO PRN (13:45)
[2022-12-11] MEDS: Acetaminophen/Butalbital/Caffeine 325-50-40 MG Tab PO SCH ×3 (16:38→21:45)
[2022-12-11] MEDS: Ondansetron 4 MG/2 ML SDV IVPUSH PRN (18:42)
[2022-12-11] MEDS ORDERED: hydrALAZINE 20 MG/ML SDV IVPUSH ONE (19:13)
[2022-12-11] MEDS: Labetalol 100 MG in Sodium Chloride 0.9% 80 ML IV SCH (19:43)
[2022-12-11] MEDS: atorvaSTATin 40 MG Tab PO SCH (20:43)
[2022-12-11] MEDS: Aspirin 81 MG Tab.EC PO SCH (20:44)
[2022-12-12] MEDS: Ondansetron 4 MG/2 ML SDV IVPUSH PRN (00:48)
[2022-12-12] MEDS: HYDROmorphone 0.5 MG/0.5 ML Syringe IVPUSH PRN (01:09)
[2022-12-12] MEDS: Acetaminophen/Butalbital/Caffeine 325-50-40 MG Tab PO SCH ×2 (04:30→10:04)
[2022-12-12 06:02] LABS: BUN/CREATININE RATIO 11.3 (14-18); CALCIUM 9.6 mg/dL (8.5-10.1); CREATININE 0.8 mg/dL (0.55-1.02); EST CRCL DRUG DOSING (CG) 64.46 mL/min
[2022-12-12 06:20] LABS: HEMATOCRIT 44.2 % (37.0-47.0); HEMOGLOBIN 15.3 gm/dl (12.0-16.0); MEAN CORPUSCULAR HEMOGLOBIN 32.7 pg (28.0-32.0); MEAN CORPUSCULAR HGB CONC 34.6 g/dl (32.0-36.0); MEAN CORPUSCULAR VOLUME 94.4 fl (83.0-99.0); RED BLOOD CELL COUNT 4.68 M/mm3 (4.10-5.30); WHITE BLOOD CELL COUNT,WBC 8.04 K/mm3 (3.9-11.3)
[2022-12-12 06:21] LABS: BASOPHILS PERCENT AUTO 1.6 % (0.0-1.0); EOSINOPHILS PERCENT AUTO 6.7 % (0.0-6.0); IMMATURE GRAN PERCENT AUTO 0.4 % (0.0-0.4); LYMPHOCYTES ABSOLUTE AUTO 2.9 K/mm3 (1.0-4.8); LYMPHOCYTES PERCENT AUTO 35.9 % (24.0-44.0); MEAN PLATELET VOLUME 9.9 fl (9.4-12.3); MONOCYTES ABSOLUTE AUTO 0.8 K/mm3 (0.0-0.8); MONOCYTES PERCENT AUTO 9.8 % (0.0-8.0); NEUTROPHILS ABSOLUTE AUTO 3.7 K/mm3 (1.8-7.7); NEUTROPHILS PERCENT AUTO 45.6 % (41.0-71.0); PLATELET COUNT,PLT 329 K/mm3 (150-400)
[2022-12-12 06:22] LABS: BASOPHILS ABSOLUTE AUTO 0.1 K/mm3 (0.0-0.2); EOSINOPHILS ABSOLUTE AUTO 0.5 K/mm3 (0.0-0.4); IMMATURE GRAN ABSOLUTE AUTO 0.03 K/mm3 (0.00-0.05)
[2022-12-12] MEDS: Cholecalciferol (Vitamin D3) 5,000 UNIT Cap PO SCH (08:25)
[2022-12-12] MEDS: amLODIPine 10 MG Tab PO SCH (08:26)
[2022-12-12] MEDS: Labetalol 100 MG Tab PO SCH (08:26)
[2022-12-12] MEDS ORDERED: Ibuprofen 600 MG Tab PO ONE (09:00)
[2022-12-12] MEDS ORDERED: Losartan 50 MG Tab PO SCH (09:00)
[2022-12-12] MEDS ORDERED: Ondansetron 4 MG Tab.DIS PO PRN (10:15)
== END 2022-12-12 14:12 | disposition home or self-care (01) | DRG 65 ==
LOC: JD.ED 17:06 → JD.MS 22:26 → OBSVTOIN 12-08 11:50 → JD.ICU 12-08 14:56
PROVIDERS: ADMIT Emergency Medicine; ATTEND Emergency Medicine
DX: I63.9 Cerebral infarction, unspecified (principal); I16.1 Hypertensive emergency; F41.9 Anxiety disorder, unspecified; J45.909 Unspecified asthma, uncomplicated; G89.29 Other chronic pain; F32.A Depression, unspecified; E66.9 Obesity, unspecified; G43.009 Migraine without aura, not intractable, without status migrainosus; Z79.899 Other long term (current) drug therapy; Z87.891 Personal history of nicotine dependence; Z87.11 Personal history of peptic ulcer disease; Z87.442 Personal history of urinary calculi; Z98.890 Other specified postprocedural states; Z68.32 Body mass index [BMI] 32.0-32.9, adult
CPT/HCPCS: 36415; 70450; 70450-26; 70544; 70544-26; 70548; 70548-26; 70551; 70551-26; 80048; 80053; 80061; 83735; 85025; 93005; 93306; 96372; 96374; 96375; 99284; 99285; A9270-GY; A9577; G0378; J0360; J1170; J1630; J2060; J2270; J2405; J3490; J7042

== ENCOUNTER 2023-07-24 14:20 | Emergency (ER) | payer SELFPAY ==
[2023-07-24] MEDS: Sulfamethoxazole/Trimethoprim 800-160 MG Tab PO ONE (15:08)
== END 2023-07-24 15:35 | disposition home or self-care (01) ==
LOC: JD.ED 14:20
DX: L02.214 Cutaneous abscess of groin (principal); Z79.82 Long term (current) use of aspirin; Z79.899 Other long term (current) drug therapy
CPT/HCPCS: 99282; A9270

== ENCOUNTER 2023-09-18 20:03 | Emergency (ER) | payer SELFPAY ==
[2023-09-18] MEDS ORDERED: Sodium Chloride 0.9% 100 ML IV SCH (20:15)
[2023-09-18 20:24] LABS: BASOPHILS ABSOLUTE AUTO 0.1 K/mm3 (0.0-0.2); BASOPHILS PERCENT AUTO 0.9 % (0.0-1.0); EOSINOPHILS ABSOLUTE AUTO 0.3 K/mm3 (0.0-0.4); EOSINOPHILS PERCENT AUTO 3.3 % (0.0-6.0); HEMATOCRIT 32.1 % (37.0-47.0); IMMATURE GRAN ABSOLUTE AUTO 0.03 K/mm3 (0.00-0.05); IMMATURE GRAN PERCENT AUTO 0.3 % (0.0-0.4); LYMPHOCYTES ABSOLUTE AUTO 3.2 K/mm3 (1.0-4.8); MEAN CORPUSCULAR HEMOGLOBIN 23.2 pg (28.0-32.0); MEAN CORPUSCULAR HGB CONC 30.5 g/dl (32.0-36.0); MEAN CORPUSCULAR VOLUME 76.1 fl (83.0-99.0); MONOCYTES ABSOLUTE AUTO 0.6 K/mm3 (0.0-0.8); MONOCYTES PERCENT AUTO 6.1 % (0.0-8.0); NEUTROPHILS ABSOLUTE AUTO 5.7 K/mm3 (1.8-7.7); NEUTROPHILS PERCENT AUTO 57.4 % (41.0-71.0); PLATELET COUNT,PLT 432 K/mm3 (150-400); RED BLOOD CELL COUNT 4.22 M/mm3 (4.10-5.30); WHITE BLOOD CELL COUNT,WBC 9.89 K/mm3 (3.9-11.3)
[2023-09-18 20:28] LABS: HEMOGLOBIN 9.8 gm/dl (12.0-16.0)
[2023-09-18] MEDS: Iopamidol 755 Mg/ML 100 ML Bottle IVPUSH ONE (20:28)
[2023-09-18 20:43] LABS: PROTHROMBIN TIME 9.9 SECONDS (9.7-12.0)
[2023-09-18 20:44] LABS: PTT,PARTIAL THROMBOPLSTIN TIME 25.4 SECONDS (21.7-31.4)
[2023-09-18 20:48] LABS: INR < 0.93
[2023-09-18 20:49] LABS: ALANINE AMINOTRANSFERASE,ALT 30 U/L (14-59); ALKALINE PHOSPHATASE 112 U/L (46-116); ANION GAP 13.9 (5-15); ASPARTATE AMNIOTRANSFERASE,AST 23 U/L (15-37); BILIRUBIN TOTAL 0.1 mg/dL (0.2-1.0); BLOOD UREA NITROGEN,BUN 10 mg/dL (7-18); CALCIUM 9.7 mg/dL (8.5-10.1); CARBON DIOXIDE,CO2 26 mEq/L (21-32); CHLORIDE,CL 101 mEq/L (98-107); ESTIMATED GFR 71 mL/min (>60); GLUCOSE RANDOM 76 mg/dL (70-99); POTASSIUM,K 3.9 mEq/L (3.5-5.1); PROTEIN TOTAL,TP 7.9 g/dl (6.4-8.2); SODIUM,NA 137 mEq/L (136-145)
[2023-09-18] MEDS: Metoclopramide 10 MG/2 ML SDV IVPUSH ONE (21:49)
[2023-09-18] MEDS: Acetaminophen 325 MG Tab PO ONE (21:49)
[2023-09-18] MEDS: Sodium Chloride 0.9% 1,000 ML IV ONE (21:49)
== END 2023-09-18 23:50 | disposition home or self-care (01) ==
LOC: JD.ED 20:03
DX: G43.909 Migraine, unspecified, not intractable, without status migrainosus (principal); Z79.899 Other long term (current) drug therapy; Z79.82 Long term (current) use of aspirin
CPT/HCPCS: 36415; 70450; 70496; 70498; 80053; 82947; 84703; 85025; 85610; 85730; 93005; 96361; 96374; 99284; A9270; J2765; J7030; Q9967; 93010

== ENCOUNTER 2024-08-12 16:24 | Emergency (ER) | payer MEDICAID ==
[2024-08-12 17:28] LABS: APPEARANCE,URINE CLEAR (Clear); BILIRUBIN,URINE NEGATIVE (Negative); COLOR,URINE YELLOW (Yellow); GLUCOSE,URINE NEGATIVE (Negative); KETONES,URINE NEGATIVE (Negative); LEUKOCYTE ESTERASE,URINE NEGATIVE (Negative); NITRITE,URINE NEGATIVE (Negative); OCCULT BLOOD,URINE NEGATIVE (Negative); PROTEIN,URINE NEGATIVE (Negative); UROBILINOGEN,URINE 0.2 (0.2-1.0)
[2024-08-12] MEDS: Sodium Chloride 0.9% 1,000 ML IV ONE (17:43)
[2024-08-12] MEDS: Acetaminophen 325 MG Tab PO ONE (17:44)
[2024-08-12] MEDS: Ondansetron 4 MG/2 ML SDV IVPUSH ONE (17:44)
[2024-08-12 17:45] LABS: BASOPHILS ABSOLUTE AUTO 0.1 K/mm3 (0.0-0.2); BASOPHILS PERCENT AUTO 0.7 % (0.0-1.0); EOSINOPHILS ABSOLUTE AUTO 0.3 K/mm3 (0.0-0.4); EOSINOPHILS PERCENT AUTO 3.1 % (0.0-6.0); HEMATOCRIT 37.3 % (37.0-47.0); HEMOGLOBIN 12.1 gm/dl (12.0-16.0); IMMATURE GRAN ABSOLUTE AUTO 0.02 K/mm3 (0.00-0.05); IMMATURE GRAN PERCENT AUTO 0.2 % (0.0-0.4); LYMPHOCYTES ABSOLUTE AUTO 1.5 K/mm3 (1.0-4.8); LYMPHOCYTES PERCENT AUTO 17.3 % (24.0-44.0); MEAN CORPUSCULAR HEMOGLOBIN 29.2 pg (28.0-32.0); MEAN CORPUSCULAR HGB CONC 32.4 g/dl (32.0-36.0); MEAN CORPUSCULAR VOLUME 90.1 fl (83.0-99.0); MEAN PLATELET VOLUME 9.1 fl (9.4-12.3); MONOCYTES ABSOLUTE AUTO 0.6 K/mm3 (0.0-0.8); MONOCYTES PERCENT AUTO 7.3 % (0.0-8.0); NEUTROPHILS ABSOLUTE AUTO 6.3 K/mm3 (1.8-7.7); NEUTROPHILS PERCENT AUTO 71.4 % (41.0-71.0); PLATELET COUNT,PLT 359 K/mm3 (150-400); RED BLOOD CELL COUNT 4.14 M/mm3 (4.10-5.30); WHITE BLOOD CELL COUNT,WBC 8.82 K/mm3 (3.9-11.3)
[2024-08-12 17:47] LABS: BARBITURATE SCREEN,URINE NEGATIVE (CUTOFF=200); BENZODIAZEPINES SCREEN,URINE NEGATIVE (CUTOFF=150); BUPRENORPHINE SCREEN,URINE NEGATIVE (CUTOFF=10); METHADONE SCREEN, URINE NEGATIVE (CUTOFF=200); METHAMPHETAMINES SCREEN, URINE NEGATIVE (CUTOFF=500); OXYCODONE SCREEN,URINE NEGATIVE (CUT0FF=100); THC SCREEN,URINE 20 NG/ML PRESUMPTIVE POSITIVE (CUTOFF=50)
[2024-08-12 17:53] LABS: AMPHETAMINES SCREEN, URINE NEGATIVE (CUTOFF=500)
[2024-08-12 18:09] LABS: ALBUMIN 3.7 g/dl (3.4-5.0); ANION GAP 10.6 (5-15); BILIRUBIN TOTAL 0.2 mg/dL (0.2-1.0); BUN/CREATININE RATIO 12.2 (14-18); CALCIUM 9.1 mg/dL (8.5-10.1); CREATININE 0.9 mg/dL (0.55-1.02); EST CRCL DRUG DOSING (CG) 56.1 mL/min; PROTEIN TOTAL,TP 7.3 g/dl (6.4-8.2)
[2024-08-12 18:10] LABS: POTASSIUM,K 4.6 mEq/L (3.5-5.1)
== END 2024-08-12 19:09 | disposition home or self-care (01) ==
LOC: JD.ED 16:24
DX: R55 Syncope and collapse (principal); T43.595A Adverse effect of other antipsychotics and neuroleptics, initial encounter; E86.9 Volume depletion, unspecified; E66.9 Obesity, unspecified; Z79.899 Other long term (current) drug therapy; Z79.1 Long term (current) use of non-steroidal anti-inflammatories (NSAID); Z68.39 Body mass index [BMI] 39.0-39.9, adult
CPT/HCPCS: 36415; 71045; 80053; 80306; 80307; 81003; 81025; 82550; 83690; 83735; 84484; 85025; 93005; 96361; 96374; 99284; A9270; J2405; J7030; 93010

== ENCOUNTER 2024-09-16 06:30 | Day surgery (SDC) | payer MEDICAID ==
[~2024-09-16 06:30] MED LIST changes: -Bupivacaine/fentaNYL/NS 100 ML Bag EPIDUR PRN; -Lactated Ringers 1,000 ML IV SCH; -Lidocaine 1%/Sod Bicarbonate in NS 8.4% 1 ML Syringe IDERM PRN; +Sodium Chloride 0.9% 10 ML Syringe FLUSH SCH; -diphenhydrAMINE 50 MG/ML SDV IVPUSH PRN; -ePHEDrine 50 MG/ML SDV IVPUSH PRN; -fentaNYL 100 MCG/2 ML SDV EPIDUR PRN
[2024-09-16] MEDS: Lactated Ringers 1,000 ML IV SCH (06:50)
[2024-09-16] MEDS ORDERED: Propofol 200 MG/20 ML SDV ONE (06:52)
[2024-09-16] MEDS ORDERED: Lidocaine 2% 5 ML SDV ONE (06:53)
[2024-09-16] MEDS ORDERED: Midazolam 1 MG/ML 2 ML SDV ONE (06:54)
[2024-09-16] MEDS ORDERED: fentaNYL 100 MCG/2 ML SDV ONE ×2 (06:54→08:24)
[2024-09-16] MEDS ORDERED: Ondansetron 4 MG/2 ML SDV ONE (06:55)
[2024-09-16] MEDS ORDERED: Dexamethasone 4 MG/ML 5 ML MDV ONE (06:55)
[2024-09-16] MEDS ORDERED: Rocuronium 50 MG/5 ML Vial ONE (06:55)
[2024-09-16] MEDS ORDERED: dexmedeTOMIDine HCl 200 MCG/2 ML SDV ONE (06:55)
[2024-09-16 07:00] LABS: BASOPHILS ABSOLUTE AUTO 0.1 K/mm3 (0.0-0.2); EOSINOPHILS ABSOLUTE AUTO 0.4 K/mm3 (0.0-0.4); EOSINOPHILS PERCENT AUTO 5.1 % (0.0-6.0); HEMATOCRIT 35.8 % (37.0-47.0); IMMATURE GRAN ABSOLUTE AUTO 0.02 K/mm3 (0.00-0.05); IMMATURE GRAN PERCENT AUTO 0.3 % (0.0-0.4); LYMPHOCYTES ABSOLUTE AUTO 1.8 K/mm3 (1.0-4.8); LYMPHOCYTES PERCENT AUTO 23.3 % (24.0-44.0); MEAN CORPUSCULAR HEMOGLOBIN 29.9 pg (28.0-32.0); MEAN CORPUSCULAR HGB CONC 33.5 g/dl (32.0-36.0); MEAN CORPUSCULAR VOLUME 89.3 fl (83.0-99.0); MEAN PLATELET VOLUME 9.5 fl (9.4-12.3); MONOCYTES ABSOLUTE AUTO 0.7 K/mm3 (0.0-0.8); MONOCYTES PERCENT AUTO 8.5 % (0.0-8.0); NEUTROPHILS ABSOLUTE AUTO 4.9 K/mm3 (1.8-7.7); NEUTROPHILS PERCENT AUTO 61.8 % (41.0-71.0); PLATELET COUNT,PLT 334 K/mm3 (150-400); RED BLOOD CELL COUNT 4.01 M/mm3 (4.10-5.30); WHITE BLOOD CELL COUNT,WBC 7.87 K/mm3 (3.9-11.3)
[2024-09-16] MEDS: Gabapentin 300 MG Cap PO SCH (07:06)
[2024-09-16] MEDS: Acetaminophen 325 MG Tab PO SCH (07:07)
[2024-09-16] MEDS: Celecoxib 100 MG Cap PO SCH (07:07)
[2024-09-16] MEDS: Phenazopyridine 95 MG Tab PO SCH (07:07)
[2024-09-16 07:17] LABS: ANION GAP 15.7 (5-15); BUN/CREATININE RATIO 21.4 (14-18); CALCIUM 9.3 mg/dL (8.5-10.1); CREATININE 0.7 mg/dL (0.55-1.02); EST CRCL DRUG DOSING (CG) 75.86 mL/min; POTASSIUM,K 3.7 mEq/L (3.5-5.1)
[2024-09-16] MEDS ORDERED: HYDROmorphone 0.5 MG/0.5 ML Syringe ONE ×2 (07:48→08:44)
[2024-09-16] MEDS ORDERED: Succinylcholine 200 MG/10 ML MDV ONE (07:49)
[2024-09-16] MEDS ORDERED: ePHEDrine 50 MG/ML SDV ONE (07:54)
[2024-09-16] MEDS ORDERED: ceFAZolin 2 GM Vial ONE (08:00)
[2024-09-16] MEDS ORDERED: Phenylephrine 1% 10 MG/ML SDV ONE (08:02)
[2024-09-16] MEDS: EPINEPHrine 1 MG/ML SDV ONE (08:08)
[2024-09-16] MEDS: Lidocaine 1% 10 ML MDV ONE (08:08)
[2024-09-16] MEDS ORDERED: Lactated Ringers 1,000 ML IV ONE (08:31)
[2024-09-16] MEDS ORDERED: Neostigmine Methylsulfate 10 MG/10 ML MDV ONE (09:10)
[2024-09-16] MEDS ORDERED: Glycopyrrolate 0.2 MG/ML 2 ML SDV ONE (09:10)
[2024-09-16] MEDS: Ondansetron 4 MG/2 ML SDV IVPUSH PRN (09:46)
[2024-09-16] MEDS: HYDROmorphone 0.5 MG/0.5 ML Syringe IVPUSH PRN (09:48)
[2024-09-16] MEDS: fentaNYL 100 MCG/2 ML SDV IVPUSH PRN (09:57)
[2024-09-16] MEDS: Prochlorperazine 10 MG/2 ML SDV IVPUSH ONE (10:25)
[2024-09-16] MEDS: oxyCODONE 5 MG Tab PO PRN (10:45)
== END 2024-09-16 13:15 | disposition home or self-care (01) ==
LOC: JD.SDS 06:30
PROVIDERS: ATTEND Obstetrics & Gynecology
DX: N80.03 Adenomyosis of the uterus (principal); N80.30 Endometriosis of pelvic peritoneum, unspecified; I10 Essential (primary) hypertension; E66.9 Obesity, unspecified; Z68.30 Body mass index [BMI] 30.0-30.9, adult; Z79.82 Long term (current) use of aspirin; Z87.891 Personal history of nicotine dependence; Z79.899 Other long term (current) drug therapy
CPT/HCPCS: 36415; 58571; 80048; 81025; 85025; 86850; 86900; 86901; A9270; J0171; J0330; J0690; J0780; J1100; J1596; J2003; J2250; J2371; J2405; J2704; J2710; J3010; J7120; 00944; J1171; J3490

== ENCOUNTER 2024-11-22 01:45 | Emergency (ER) | payer MEDICAID ==
[2024-11-22 02:24] LABS: BASOPHILS ABSOLUTE AUTO 0.1 K/mm3 (0.0-0.2); BASOPHILS PERCENT AUTO 1.2 % (0.0-1.0); EOSINOPHILS ABSOLUTE AUTO 0.6 K/mm3 (0.0-0.4); EOSINOPHILS PERCENT AUTO 7.7 % (0.0-6.0); IMMATURE GRAN ABSOLUTE AUTO 0.01 K/mm3 (0.00-0.05); IMMATURE GRAN PERCENT AUTO 0.1 % (0.0-0.4); LYMPHOCYTES ABSOLUTE AUTO 2.5 K/mm3 (1.0-4.8); LYMPHOCYTES PERCENT AUTO 31.2 % (24.0-44.0); MEAN PLATELET VOLUME 9.3 fl (9.4-12.3); MONOCYTES ABSOLUTE AUTO 0.9 K/mm3 (0.0-0.8); MONOCYTES PERCENT AUTO 10.8 % (0.0-8.0); NEUTROPHILS ABSOLUTE AUTO 4.0 K/mm3 (1.8-7.7); NEUTROPHILS PERCENT AUTO 49.0 % (41.0-71.0); NRBC ABSOLUTE 0.00 (0.00-0.02); NRBC PERCENT 0.0 % (0.0-0.2); PLATELET COUNT,PLT 277 K/mm3 (150-400); RED BLOOD CELL COUNT 4.02 M/mm3 (4.10-5.30); WHITE BLOOD CELL COUNT,WBC 8.14 K/mm3 (3.9-11.3)
[2024-11-22 02:44] LABS: A/G RATIO 1.3 (1-2); ALANINE AMINOTRANSFERASE,ALT 33.0 U/L (14-59); ASPARTATE AMNIOTRANSFERASE,AST 22.0 U/L (15-37); BILIRUBIN TOTAL 0.2 mg/dL (0.2-1.0); BLOOD UREA NITROGEN,BUN 19.0 mg/dL (7-18); CARBON DIOXIDE,CO2 25.0 mEq/L (21-32); CHLORIDE,CL 104.0 mEq/L (98-107); CREATININE 0.6 mg/dL (0.55-1.02); EST CRCL DRUG DOSING (CG) 84.15 mL/min; ESTIMATED GFR 112.0 mL/min (>60); GLUCOSE RANDOM 78.0 mg/dL (70-99); POTASSIUM,K 3.7 mEq/L (3.5-5.1); PROTEIN TOTAL,TP 7.0 g/dl (6.4-8.2); SODIUM,NA 138.0 mEq/L (136-145)
[2024-11-22] MEDS: Ondansetron 4 MG/2 ML SDV IVPUSH ONE (02:49)
[2024-11-22] MEDS: Ketorolac 30 MG/ML SDV IVPUSH ONE (02:49)
[2024-11-22 03:03] LABS: APPEARANCE,URINE CLEAR (Clear); GLUCOSE,URINE NEGATIVE (Negative); OCCULT BLOOD,URINE NEGATIVE (Negative)
[2024-11-22] MEDS: Sodium Chloride 0.9% 10 ML Syringe FLUSH PRN (03:36)
[2024-11-22] MEDS: Iopamidol 612 MG/ML 100 ML Bottle IVPUSH ONE (03:36)
== END 2024-11-22 04:50 | disposition home or self-care (01) ==
LOC: JD.ED 01:45
DX: R10.9 Unspecified abdominal pain (principal); Z79.82 Long term (current) use of aspirin; Z79.899 Other long term (current) drug therapy
CPT/HCPCS: 36415; 74177; 80053; 81003; 83690; 84703; 85025; 96374; 96375; 99284; J1885; J2270; J2405; J7030; Q9967; 99283

== ENCOUNTER 2025-02-26 23:07 | Emergency (ER) | payer MEDICAID ==
[2025-02-27] MEDS: Ketorolac 30 MG/ML SDV IM ONE (01:02)
== END 2025-02-27 01:44 | disposition home or self-care (01) ==
LOC: JD.ED 23:07
DX: M25.571 Pain in right ankle and joints of right foot (principal); M25.551 Pain in right hip; J45.909 Unspecified asthma, uncomplicated; E66.9 Obesity, unspecified; Z79.899 Other long term (current) drug therapy; Z79.82 Long term (current) use of aspirin; Z68.39 Body mass index [BMI] 39.0-39.9, adult
CPT/HCPCS: 72192; 73552; 73590; 73630; 96372; 99283; J1885